=== PATIENT | male | born 1990 | race Two or more races ===

== ENCOUNTER 2020-11-23 00:50 | Emergency (ER) | payer OTHER ==
[~2020-11-23] VITALS: Ht 170.2 cm; Wt 70.0 kg
[2020-11-23 02:21] LABS: COVID AG,FIA SOURCE NASOPHARYNGEAL
[2020-11-23] MEDS ORDERED: ACETAMINOPHEN 325 MG TABLET PO ONE (02:45)
[2020-11-23] MEDS ORDERED: PERTUSS(ACELL),DIPH,TET VAC/PF 0.5 ML SYRINGE IM. ONE (03:00)
[2020-11-23] MEDS ORDERED: IBUPROFEN 400 MG TABLET PO ONE (05:00)
[2020-11-23 05:20] VITALS: BP 123/74
== END 2020-11-23 05:56 | disposition home or self-care (01) ==
LOC: EMS 00:55
DX: S52.121A Displaced fracture of head of right radius, initial encounter for closed fracture (principal); Z20.822 Contact with and (suspected) exposure to COVID-19; W19.XXXA Unspecified fall, initial encounter; Y93.89 Activity, other specified; Y92.89 Other specified places as the place of occurrence of the external cause; Y99.8 Other external cause status
CPT/HCPCS: 72100; 72170; 90471; 90715; 99284; 99285